=== PATIENT | female | born 1950 | race Caucasian/White ===

== ENCOUNTER 2018-04-04 16:49 | Inpatient (IN) | payer MEDICARE, OTHER ==
[2018-04-04 19:52] LABS: ADD MAN DIFF? NO
[2018-04-04 19:53] LABS: BASOPHIL # 0.1 10^3/ul (0.0-0.1); BASOPHILS % 0.3 % (0.0-2.0); EOSINOPHILS # 0.1 10^3/ul (0.0-0.5); EOSINOPHILS % 0.2 % (0.0-7.0); HEMATOCRIT 39.8 % (37.0-47.0); HEMOGLOBIN 13.2 g/dl (12.0-16.0); LYMPHOCYTES # 3.4 10^3/ul (0.8-2.9); LYMPHOCYTES % 16.5 % (15.0-51.0); MEAN CORPUSCULAR HGB CONC 33.2 g/dl (32.0-37.0); MEAN CORPUSCULAR VOLUME 84.5 fl (82.0-101.0); MEAN PLATELET VOLUME 11.3 fl (7.4-10.4); MONOCYTE # 1.2 10^3/ul (0.3-0.9); MONOCYTES % 5.8 % (0.0-11.0); NEUTROPHIL # 15.7 10^3/ul (1.6-7.5); NEUTROPHILS % 76.5 % (39.0-77.0); PLATELET COUNT 255 10^3/UL (140-415); RED BLOOD COUNT 4.71 10^6/ul (4.20-5.40); RED CELL DISTRIBUTION WIDTH 12.8 % (11.5-14.5)
[2018-04-04 19:53] LABS: WHITE BLOOD COUNT 20.5 10^3/ul (4.8-10.8)
[2018-04-04 20:13] LABS: INR 1.07; PT RATIO 1.1
[2018-04-04 20:14] LABS: PARTIAL THROMBOPLASTIN TIME 30.4 Sec (23.0-35.0)
[2018-04-04 20:15] LABS: ALANINE AMINOTRANSFERASE 24 IU/L (13-69); ALBUMIN 4.1 g/dl (3.3-4.9); ALBUMIN/GLOBULIN RATIO 1.36; ALKALINE PHOSPHATASE 120 IU/L (42-121); AMYLASE 42 U/L (11-123); ANION GAP 12 (5-13); ASPARTATE AMINO TRANSFERASE 23 IU/L (15-46); BILIRUBIN,INDIRECT 0.2 mg/dl (0-1.1); BILIRUBIN,TOTAL 0.2 mg/dl (0.2-1.3); BLOOD UREA NITROGEN 17 mg/dl (7-20); CALCIUM 9.1 mg/dl (8.4-10.2); CARBON DIOXIDE 25 mmol/L (21-31); CHLORIDE 98 mmol/L (97-110); CREATININE 0.62 mg/dl (0.44-1.00); Estimated GFR > 60 mL/min (>60); GLUCOSE 397 mg/dl (70-220); LIPASE 208 U/L (23-300); POTASSIUM 3.7 mmol/L (3.5-5.1); SODIUM 135 mmol/L (135-144); TOTAL PROTEIN 7.1 g/dl (6.1-8.1)
[2018-04-04] MEDS: morphine 4 MG/ML VIAL IV (20:16)
[2018-04-04] MEDS: ACETAMINOPHEN 325 MG TAB PO (20:16)
[2018-04-04] MEDS: ONDANSETRON 4 MG INJ IV (20:16)
[2018-04-04] MEDS: SODIUM CHLORIDE 0.9% 1L BAG IV* (20:17)
[2018-04-04] MEDS: CLINDAMYCIN 900 MG/D5W (PMX) 50 ML IVPB (20:23)
[2018-04-04 20:27] LABS: TROPONIN-I < 0.012 ng/ml (0.000-0.120)
[2018-04-04] MEDS ORDERED: BISACODYL (EC) 5 MG TAB PO (21:00)
[2018-04-04] MEDS ORDERED: NACL 0.9% 3 ML SYG IV (21:00)
[2018-04-04] MEDS ORDERED: DOCUSATE SODIUM 100 MG CAP PO (21:00)
[2018-04-04] MEDS ORDERED: morphine 2 MG INJ IV (21:00)
[2018-04-04] MEDS ORDERED: HYDROCODONE/APAP (5/325) TAB PO (21:00)
[2018-04-04] MEDS ORDERED: ONDANSETRON 4 MG TAB PO (21:00)
[2018-04-04] MEDS ORDERED: ACETAMINOPHEN 325 MG TAB PO (21:00)
[2018-04-04] MEDS ORDERED: ONDANSETRON 4 MG INJ IV (21:00)
[2018-04-04] MEDS: CIPROFLOXACIN 400MG/D5W 200 ML IVPB (21:24)
[2018-04-04 21:51] LABS: ADD UMIC YES; UR ASCORBIC ACID NEGATIVE (NEGATIVE); UR BACTERIA FEW /HPF (NONE SEEN); UR BILIRUBIN (Dip) NEGATIVE (NEGATIVE); UR BLOOD (Dip) NEGATIVE (NEGATIVE); UR CLARITY SLIGHTLY CLOUDY (CLEAR); UR COLOR YELLOW (YELLOW); UR GLUCOSE (Dip) 3+ mg/dL (NEGATIVE); UR KETONES (Dip) TRACE mg/dL (NEGATIVE); UR LEUKOCYTE ESTERASE (Dip) TRACE Leu/ul (NEGATIVE); UR MUCUS FEW /HPF (NONE SEEN); UR NITRITE (Dip) NEGATIVE (NEGATIVE); UR RBC 3 /HPF (0-5); UR SPECIFIC GRAVITY (Dip) 1.025 (1.003-1.030); UR SQUAMOUS EPITHELIAL CELL FEW /HPF (FEW); UR TOTAL PROTEIN (Dip) NEGATIVE (NEGATIVE); UR UROBILINOGEN (Dip) 1+ mg/dL (NEGATIVE); UR WBC 6 /HPF (0-5)
[2018-04-04] MEDS ORDERED: HEPARIN 5,000 UNIT/0.5 ML VIAL (23:47)
[2018-04-04] MEDS: VANCOMYCIN 1 GM (PMX) 250 ML IVPB (23:55)
[2018-04-05] MEDS: HEPARIN 5,000 UNIT/1 ML VIAL SC ×4 (00:22→21:25)
[2018-04-05 01:29] LABS: LACTIC ACID 1.5 mmol/L (0.5-2.0)
[2018-04-05] MEDS: ACCU-CHEK XX (02:55)
[2018-04-05 03:43] LABS: LACTIC ACID 1.3 mmol/L (0.5-2.0)
[2018-04-05] MEDS ORDERED: HEPARIN 5,000 UNIT/0.5 ML VIAL ×3 (05:39→21:12)
[2018-04-05 06:12] LABS: ADD MAN DIFF? NO
[2018-04-05 06:18] LABS: WHITE BLOOD COUNT 14.9 10^3/ul (4.8-10.8)
[2018-04-05 06:18] LABS: BASOPHILS % 0.3 % (0.0-2.0); EOSINOPHILS # 0.2 10^3/ul (0.0-0.5); EOSINOPHILS % 1.4 % (0.0-7.0); HEMATOCRIT 35.4 % (37.0-47.0); HEMOGLOBIN 11.6 g/dl (12.0-16.0); LYMPHOCYTES # 3.6 10^3/ul (0.8-2.9); MEAN CORPUSCULAR HEMOGLOBIN 28.3 pg (29.0-33.0); MEAN CORPUSCULAR HGB CONC 32.8 g/dl (32.0-37.0); MEAN CORPUSCULAR VOLUME 86.3 fl (82.0-101.0); MEAN PLATELET VOLUME 11.3 fl (7.4-10.4); MONOCYTE # 1.3 10^3/ul (0.3-0.9); MONOCYTES % 8.7 % (0.0-11.0); NEUTROPHIL # 9.6 10^3/ul (1.6-7.5); NEUTROPHILS % 64.8 % (39.0-77.0); PLATELET COUNT 210 10^3/UL (140-415); RED CELL DISTRIBUTION WIDTH 12.9 % (11.5-14.5)
[2018-04-05 06:35] LABS: HEMOGLOBIN A1C 10.1 % (0-5.9)
[2018-04-05 06:49] LABS: ALANINE AMINOTRANSFERASE 29 IU/L (13-69); ALBUMIN 2.8 g/dl (3.3-4.9); ALBUMIN/GLOBULIN RATIO 1.12; ALKALINE PHOSPHATASE 98 IU/L (42-121); ANION GAP 4 (5-13); ASPARTATE AMINO TRANSFERASE 17 IU/L (15-46); BILIRUBIN,INDIRECT 0.2 mg/dl (0-1.1); BILIRUBIN,TOTAL 0.2 mg/dl (0.2-1.3); BLOOD UREA NITROGEN 17 mg/dl (7-20); CALCIUM 8.3 mg/dl (8.4-10.2); CARBON DIOXIDE 27 mmol/L (21-31); CHLORIDE 107 mmol/L (97-110); CHOL/HDL RATIO 4.5 RATIO; CHOLESTEROL 155 mg/dl (100-200); CREATININE 0.62 mg/dl (0.44-1.00); Estimated GFR > 60 mL/min (>60); GLUCOSE 313 mg/dl (70-220); HDL CHOLESTEROL 34 mg/dl (35-98); LDL CHOLESTEROL,CALCULATED 81 mg/dl; MAGNESIUM 2.2 mg/dl (1.7-2.5); SODIUM 138 mmol/L (135-144); TOTAL PROTEIN 5.3 g/dl (6.1-8.1); TRIGLYCERIDES 200 mg/dl (0-149)
[2018-04-05 06:53] LABS: LACTIC ACID 1.4 mmol/L (0.5-2.0)
[2018-04-05] MEDS: FUROSEMIDE 20 MG TAB PO (07:03)
[2018-04-05 07:54] LABS: THYROID STIMULATING HORMONE 0.797 MIU/L (0.465-4.680)
[2018-04-05] MEDS: INSULIN ASPART [NOVOLOG] 3 ML PEN SC ×4 (08:34→21:23)
[2018-04-05] MEDS ORDERED: NON-FORMULARY/PATIENT OWN MED (Omega-3 Acid Ethyl Esters (Lovaza) 1 GM) PO (09:00)
[2018-04-05] MEDS: ASPIRIN 81 MG TAB PO (09:23)
[2018-04-05] MEDS: traMADol 50 MG TAB PO ×2 (09:23→21:15)
[2018-04-05] MEDS: FISH OIL 1,000 MG CAP PO ×3 (09:23→21:16)
[2018-04-05] MEDS: HYDROCHLOROTHIAZIDE 25 MG TAB PO (09:25)
[2018-04-05] MEDS: BISACODYL (EC) 5 MG TAB PO ×2 (09:26→21:15)
[2018-04-05] MEDS ORDERED: VANCOMYCIN IV PER PHARMACY XX (09:30)
[2018-04-05] MEDS: PIPER-TAZO 3.375 GM IV (PMX) 100 ML IVPB ×2 (11:03→17:41)
[2018-04-05] MEDS: VANCOMYCIN 2 GM in SOD CHLORIDE 0.9% 500 ML IVPB (13:27)
[2018-04-05] MEDS: ACETAMINOPHEN 325 MG TAB PO (15:25)
[2018-04-05 16:54] LABS: C-REACTIVE PROTEIN 18.8 mg/dl (0.0-0.9)
[2018-04-05 17:27] LABS: ERYTHROCYTE SEDIMENTATION RATE 80 mm/Hr (0-30)
[2018-04-05] MEDS: INSULIN GLARGINE [LANTus] (100 UNITS/ML) SYG SC (21:24)
[2018-04-06] MEDS: ACCU-CHEK XX (02:00)
[2018-04-06] MEDS: VANCOMYCIN 1.25 GM in SOD CHLORIDE 0.9% 250 ML IVPB ×2 (03:19→14:26)
[2018-04-06] MEDS: FUROSEMIDE 20 MG TAB PO (05:44)
[2018-04-06] MEDS: PIPER-TAZO 3.375 GM IV (PMX) 100 ML IVPB ×4 (05:44→17:12)
[2018-04-06] MEDS: INSULIN ASPART [NOVOLOG] 3 ML PEN SC ×7 (08:02→21:30)
[2018-04-06] MEDS: FISH OIL 1,000 MG CAP PO ×3 (08:34→21:02)
[2018-04-06] MEDS: BISACODYL (EC) 5 MG TAB PO ×2 (08:34→21:02)
[2018-04-06] MEDS: ASPIRIN 81 MG TAB PO (08:34)
[2018-04-06] MEDS: traMADol 50 MG TAB PO ×2 (08:35→21:02)
[2018-04-06] MEDS: HYDROCHLOROTHIAZIDE 25 MG TAB PO (08:36)
[2018-04-06 15:50] LABS: C-REACTIVE PROTEIN 13.9 mg/dl (0.0-0.9)
[2018-04-06 16:22] LABS: ERYTHROCYTE SEDIMENTATION RATE 110 mm/Hr (0-30)
[2018-04-06] MEDS: INSULIN GLARGINE [LANTus] (100 UNITS/ML) SYG SC (21:10)
[2018-04-07] MEDS: PIPER-TAZO 3.375 GM IV (PMX) 100 ML IVPB ×4 (00:10→17:46)
[2018-04-07 01:46] LABS: BLOOD UREA NITROGEN 15 mg/dl (7-20)
[2018-04-07 01:46] LABS: CREATININE 0.64 mg/dl (0.44-1.00)
[2018-04-07 01:53] LABS: VANCOMYCIN,TROUGH 6.4 ug/ml (10.0-20.0)
[2018-04-07] MEDS: ACCU-CHEK XX (02:00)
[2018-04-07] MEDS: VANCOMYCIN 1.25 GM in SOD CHLORIDE 0.9% 250 ML IVPB (03:07)
[2018-04-07] MEDS: FUROSEMIDE 20 MG TAB PO (05:45)
[2018-04-07] MEDS: INSULIN ASPART [NOVOLOG] 3 ML PEN SC ×7 (08:00→22:08)
[2018-04-07] MEDS: traMADol 50 MG TAB PO ×2 (09:12→21:53)
[2018-04-07] MEDS: FISH OIL 1,000 MG CAP PO ×3 (09:13→21:52)
[2018-04-07] MEDS: HYDROCHLOROTHIAZIDE 25 MG TAB PO (09:13)
[2018-04-07] MEDS: BISACODYL (EC) 5 MG TAB PO ×2 (09:13→21:52)
[2018-04-07] MEDS: ASPIRIN 81 MG TAB PO (09:13)
[2018-04-07] MEDS ORDERED: ONDANSETRON 4 MG INJ IV (09:30)
[2018-04-07] MEDS ORDERED: LABETALOL HCL 20MG INJ IV (09:30)
[2018-04-07] MEDS ORDERED: HYDROmorphONE 1 MG/5 ML IV SYRINGE IV ×3 (09:30)
[2018-04-07] MEDS ORDERED: DIPHENHYDRAMINE 50 MG INJ IV (09:30)
[2018-04-07] MEDS ORDERED: hydrALAzine 20 MG INJ IV (09:30)
[2018-04-07] MEDS ORDERED: MEPERIDINE 25 MG INJ IV (09:30)
[2018-04-07] MEDS ORDERED: FENTAnyl 50 MCG/ML VIAL (09:39)
[2018-04-07] MEDS ORDERED: PROPOFOL 20 ML (09:39)
[2018-04-07] MEDS ORDERED: MIDAZOLAM 1 MG/ML 2 ML INJ (09:39)
[2018-04-07] MEDS: LIDOCAINE 1% (STERILE-PAK) 30 ML INJ (10:07)
[2018-04-07] MEDS: POLYMYXIN/BACITRACIN 1L IRRIG (10:07)
[2018-04-07] MEDS: POLYMYXIN B 500000 UNIT INJ (10:08)
[2018-04-07] MEDS: BACITRACIN 50000 UNITS INJ IRR (10:08)
[2018-04-07] MEDS: VANCOMYCIN 1 GM 250 ML IVPB ×2 (14:11→21:53)
[2018-04-07] MEDS: DIAZEPAM 5 MG/ML SYG IV (21:54)
[2018-04-07] MEDS: INSULIN GLARGINE [LANTus] (100 UNITS/ML) SYG SC (22:08)
[2018-04-08] MEDS: PIPER-TAZO 3.375 GM IV (PMX) 100 ML IVPB ×4 (00:15→18:29)
[2018-04-08] MEDS: ACCU-CHEK XX (02:04)
[2018-04-08 05:41] LABS: HEMATOCRIT 36.1 % (37.0-47.0); HEMOGLOBIN 11.9 g/dl (12.0-16.0); MEAN CORPUSCULAR HEMOGLOBIN 27.7 pg (29.0-33.0); MEAN CORPUSCULAR VOLUME 84.1 fl (82.0-101.0); MEAN PLATELET VOLUME 10.4 fl (7.4-10.4); PLATELET COUNT 308 10^3/UL (140-415); RED BLOOD COUNT 4.29 10^6/ul (4.20-5.40)
[2018-04-08 05:41] LABS: WHITE BLOOD COUNT 12.6 10^3/ul (4.8-10.8)
[2018-04-08 05:43] LABS: POSITIVE DIFF @See below
[2018-04-08 05:44] LABS: ADD MAN DIFF? YES
[2018-04-08] MEDS: FUROSEMIDE 20 MG TAB PO (05:44)
[2018-04-08] MEDS: VANCOMYCIN 1 GM 250 ML IVPB ×2 (05:45→15:11)
[2018-04-08 06:12] LABS: ANION GAP 8 (5-13); BLOOD UREA NITROGEN 12 mg/dl (7-20); CALCIUM 8.8 mg/dl (8.4-10.2); CARBON DIOXIDE 28 mmol/L (21-31); CHLORIDE 104 mmol/L (97-110); CREATININE 0.64 mg/dl (0.44-1.00); Estimated GFR > 60 mL/min (>60); GLUCOSE 127 mg/dl (70-220); MAGNESIUM 2.2 mg/dl (1.7-2.5); PHOSPHORUS 4.2 mg/dl (2.5-4.9); POTASSIUM 3.7 mmol/L (3.5-5.1); SODIUM 140 mmol/L (135-144)
[2018-04-08] MEDS: morphine 4 MG/ML VIAL IV (07:40)
[2018-04-08] MEDS: ONDANSETRON 4 MG INJ IV (07:41)
[2018-04-08] MEDS: IBUPROFEN 800 MG TAB PO (07:42)
[2018-04-08] MEDS: INSULIN ASPART [NOVOLOG] 3 ML PEN SC ×7 (07:42→22:08)
[2018-04-08 07:54] LABS: ANISOCYTOSIS 1+ (0-0); BASOPHIL #M 0.1 10^3/ul (0.0-0.0); BASOPHILS % (M) 1 % (0-2); EOSINOPHILS % (M) 2 % (0-7); LYMPHOCYTES #M 4.6 10^3/ul (0.8-2.9); LYMPHOCYTES % (M) 37 % (15-51); MONOCYTE #M 0.6 10^3/ul (0.3-0.9); MONOCYTES % (M) 5 % (0-11); PLATELET ESTIMATE NORMAL; PLATELET MORPHOLOGY COMMENT @See below; POLYCHROMASIA 1+ (0-0); REACTIVE LYMPHOCYTES #M 0.1 10^3/ul (0.0-0.0); REACTIVE LYMPHOCYTES% (M) 1 % (0-0); SEGMENTED NEUTROPHILS (M) % 54 % (39-77); SMUDGE%M 11 % (0-0)
[2018-04-08] MEDS: BISACODYL (EC) 5 MG TAB PO ×2 (08:48→21:47)
[2018-04-08] MEDS: FISH OIL 1,000 MG CAP PO ×3 (08:48→21:47)
[2018-04-08] MEDS: traMADol 50 MG TAB PO ×2 (08:49→21:48)
[2018-04-08] MEDS: ASPIRIN 81 MG TAB PO (08:49)
[2018-04-08] MEDS: HYDROCHLOROTHIAZIDE 25 MG TAB PO (08:49)
[2018-04-08] MEDS ORDERED: morphine LIQ (10 MG/5 ML) CUP PO (12:40)
[2018-04-08 13:12] LABS: PROCALCITONIN 0.11 ng/mL (<0.10)
[2018-04-08] MEDS: INSULIN GLARGINE [LANTus] (100 UNITS/ML) SYG SC (21:00)
[2018-04-08] MEDS: VANCOMYCIN 750 MG in SOD CHLORIDE 0.9% 150 ML IVPB (23:00)
[2018-04-09] MEDS: PIPER-TAZO 3.375 GM IV (PMX) 100 ML IVPB ×4 (00:32→17:41)
[2018-04-09] MEDS: ACCU-CHEK XX (02:00)
[2018-04-09] MEDS: FUROSEMIDE 20 MG TAB PO (05:30)
[2018-04-09 05:36] LABS: ADD MAN DIFF? NO
[2018-04-09 05:47] LABS: BASOPHIL # 0.1 10^3/ul (0.0-0.1); BASOPHILS % 0.5 % (0.0-2.0); EOSINOPHILS # 0.4 10^3/ul (0.0-0.5); HEMATOCRIT 35.9 % (37.0-47.0); HEMOGLOBIN 11.9 g/dl (12.0-16.0); LYMPHOCYTES # 3.7 10^3/ul (0.8-2.9); LYMPHOCYTES % 30.7 % (15.0-51.0); MEAN CORPUSCULAR HEMOGLOBIN 28.4 pg (29.0-33.0); MEAN CORPUSCULAR HGB CONC 33.1 g/dl (32.0-37.0); MEAN CORPUSCULAR VOLUME 85.7 fl (82.0-101.0); MEAN PLATELET VOLUME 10.4 fl (7.4-10.4); MONOCYTES % 8.2 % (0.0-11.0); NEUTROPHIL # 6.8 10^3/ul (1.6-7.5); NEUTROPHILS % 55.9 % (39.0-77.0); PLATELET COUNT 312 10^3/UL (140-415); RED BLOOD COUNT 4.19 10^6/ul (4.20-5.40)
[2018-04-09 05:47] LABS: WHITE BLOOD COUNT 12.1 10^3/ul (4.8-10.8)
[2018-04-09] MEDS: VANCOMYCIN 750 MG in SOD CHLORIDE 0.9% 150 ML IVPB ×2 (06:01→15:26)
[2018-04-09 06:47] LABS: ANION GAP 9 (5-13); BLOOD UREA NITROGEN 13 mg/dl (7-20); CALCIUM 8.8 mg/dl (8.4-10.2); CARBON DIOXIDE 28 mmol/L (21-31); CHLORIDE 105 mmol/L (97-110); CREATININE 0.71 mg/dl (0.44-1.00); Estimated GFR > 60 mL/min (>60); GLUCOSE 132 mg/dl (70-220); MAGNESIUM 2.4 mg/dl (1.7-2.5); PHOSPHORUS 4.7 mg/dl (2.5-4.9); POTASSIUM 3.4 mmol/L (3.5-5.1); SODIUM 142 mmol/L (135-144)
[2018-04-09] MEDS: INSULIN ASPART [NOVOLOG] 3 ML PEN SC ×7 (08:00→21:13)
[2018-04-09] MEDS ORDERED: GLUCOSE GEL 15 GRAM TUBE BUCCAL (08:30)
[2018-04-09] MEDS ORDERED: DEXTROSE 50% 50 ML SYRINGE IV ×2 (08:30)
[2018-04-09] MEDS ORDERED: GLUCAGON 1 MG INJ IM (08:30)
[2018-04-09] MEDS ORDERED: GLUCOSE GEL 15 GRAM TUBE PO ×2 (08:30)
[2018-04-09] MEDS: traMADol 50 MG TAB PO ×2 (09:00→21:14)
[2018-04-09] MEDS: ASPIRIN 81 MG TAB PO (09:03)
[2018-04-09] MEDS: HYDROCHLOROTHIAZIDE 25 MG TAB PO (09:03)
[2018-04-09] MEDS: FISH OIL 1,000 MG CAP PO ×3 (09:03→21:13)
[2018-04-09] MEDS: BISACODYL (EC) 5 MG TAB PO ×2 (09:03→21:15)
[2018-04-09 12:12] LABS: C-REACTIVE PROTEIN 3.7 mg/dl (0.0-0.9)
[2018-04-09] MEDS: POTASSIUM CHLORIDE (SR) 20 MEQ TAB PO (16:09)
[2018-04-09] MEDS: INSULIN GLARGINE [LANTus] (100 UNITS/ML) SYG SC (21:12)
[2018-04-09] MEDS: DIPHENHYDRAMINE 25 MG CAP PO (23:00)
[2018-04-10] MEDS: VANCOMYCIN 750 MG in SOD CHLORIDE 0.9% 150 ML IVPB ×2 (00:15→08:26)
[2018-04-10] MEDS: ACCU-CHEK XX (02:00)
[2018-04-10] MEDS: PIPER-TAZO 3.375 GM IV (PMX) 100 ML IVPB ×3 (02:26→12:30)
[2018-04-10 05:59] LABS: ADD MAN DIFF? NO
[2018-04-10 06:16] LABS: WHITE BLOOD COUNT 12.6 10^3/ul (4.8-10.8)
[2018-04-10 06:16] LABS: BASOPHIL # 0.1 10^3/ul (0.0-0.1); BASOPHILS % 0.6 % (0.0-2.0); EOSINOPHILS # 0.4 10^3/ul (0.0-0.5); EOSINOPHILS % 2.9 % (0.0-7.0); HEMATOCRIT 36.6 % (37.0-47.0); HEMOGLOBIN 11.9 g/dl (12.0-16.0); LYMPHOCYTES # 4.1 10^3/ul (0.8-2.9); LYMPHOCYTES % 32.2 % (15.0-51.0); MEAN CORPUSCULAR HEMOGLOBIN 27.7 pg (29.0-33.0); MEAN CORPUSCULAR HGB CONC 32.5 g/dl (32.0-37.0); MEAN CORPUSCULAR VOLUME 85.1 fl (82.0-101.0); MEAN PLATELET VOLUME 10.3 fl (7.4-10.4); MONOCYTE # 0.9 10^3/ul (0.3-0.9); MONOCYTES % 7.4 % (0.0-11.0); NEUTROPHILS % 55.6 % (39.0-77.0); PLATELET COUNT 327 10^3/UL (140-415)
[2018-04-10] MEDS: FUROSEMIDE 20 MG TAB PO (06:34)
[2018-04-10 07:16] LABS: VANCOMYCIN,TROUGH 17.6 ug/ml (10.0-20.0)
[2018-04-10 07:21] LABS: ANION GAP 7 (5-13); BLOOD UREA NITROGEN 14 mg/dl (7-20); CARBON DIOXIDE 26 mmol/L (21-31); CHLORIDE 106 mmol/L (97-110); CREATININE 0.74 mg/dl (0.44-1.00); Estimated GFR > 60 mL/min (>60); GLUCOSE 183 mg/dl (70-220); MAGNESIUM 2.3 mg/dl (1.7-2.5); PHOSPHORUS 4.7 mg/dl (2.5-4.9); POTASSIUM 3.9 mmol/L (3.5-5.1); SODIUM 139 mmol/L (135-144)
[2018-04-10] MEDS: ASPIRIN 81 MG TAB PO (08:20)
[2018-04-10] MEDS: FISH OIL 1,000 MG CAP PO ×3 (08:20→21:16)
[2018-04-10] MEDS: BISACODYL (EC) 5 MG TAB PO ×2 (08:21→21:16)
[2018-04-10] MEDS: traMADol 50 MG TAB PO ×2 (08:21→21:17)
[2018-04-10] MEDS: HYDROCHLOROTHIAZIDE 25 MG TAB PO (08:22)
[2018-04-10] MEDS: INSULIN ASPART [NOVOLOG] 3 ML PEN SC ×7 (08:24→21:15)
[2018-04-10] MEDS: DIPHENHYDRAMINE 25 MG CAP PO ×2 (10:26→17:14)
[2018-04-10] MEDS: SODIUM HYPOCHLORITE (1/40) 1 APPLIC BTL IRR (14:56)
[2018-04-10] MEDS ORDERED: VANCOMYCIN 500MG/NS (PMX) 100 ML IVPB (16:00)
[2018-04-10 16:09] LABS: C-REACTIVE PROTEIN 2.5 mg/dl (0.0-0.9)
[2018-04-10] MEDS: CEFTRIAXONE 2 GM/50 ML (PMX) 50 ML IVPB (18:55)
[2018-04-10] MEDS: LIDOCAINE 1% (MPF) 5 ML VIAL SC (20:25)
[2018-04-10] MEDS: SOD CHLORIDE 0.9% 100 ML (20:35)
[2018-04-10] MEDS: INSULIN GLARGINE [LANTus] (100 UNITS/ML) SYG SC (21:14)
[2018-04-11] MEDS: ACCU-CHEK XX (02:17)
[2018-04-11] MEDS: FUROSEMIDE 20 MG TAB PO (06:02)
[2018-04-11 06:59] LABS: ADD MAN DIFF? NO
[2018-04-11 07:08] LABS: BASOPHILS % 0.2 % (0.0-2.0); EOSINOPHILS # 0.4 10^3/ul (0.0-0.5); EOSINOPHILS % 3.1 % (0.0-7.0); HEMATOCRIT 37.8 % (37.0-47.0); HEMOGLOBIN 12.2 g/dl (12.0-16.0); LYMPHOCYTES # 3.2 10^3/ul (0.8-2.9); LYMPHOCYTES % 24.4 % (15.0-51.0); MEAN CORPUSCULAR HEMOGLOBIN 27.7 pg (29.0-33.0); MEAN CORPUSCULAR HGB CONC 32.3 g/dl (32.0-37.0); MEAN CORPUSCULAR VOLUME 85.9 fl (82.0-101.0); MEAN PLATELET VOLUME 10.2 fl (7.4-10.4); MONOCYTES % 7.6 % (0.0-11.0); NEUTROPHIL # 8.3 10^3/ul (1.6-7.5); NEUTROPHILS % 63.6 % (39.0-77.0); PLATELET COUNT 344 10^3/UL (140-415); RED CELL DISTRIBUTION WIDTH 13.2 % (11.5-14.5)
[2018-04-11 07:42] LABS: ANION GAP 7 (5-13); BLOOD UREA NITROGEN 17 mg/dl (7-20); CALCIUM 8.8 mg/dl (8.4-10.2); CARBON DIOXIDE 29 mmol/L (21-31); CHLORIDE 106 mmol/L (97-110); CREATININE 0.96 mg/dl (0.44-1.00); Estimated GFR 58 mL/min (>60); GLUCOSE 139 mg/dl (70-220); MAGNESIUM 2.4 mg/dl (1.7-2.5); PHOSPHORUS 5.6 mg/dl (2.5-4.9); POTASSIUM 3.5 mmol/L (3.5-5.1); SODIUM 142 mmol/L (135-144)
[2018-04-11] MEDS: FISH OIL 1,000 MG CAP PO ×2 (08:13→12:43)
[2018-04-11] MEDS: BISACODYL (EC) 5 MG TAB PO (08:14)
[2018-04-11] MEDS: ASPIRIN 81 MG TAB PO (08:14)
[2018-04-11] MEDS: traMADol 50 MG TAB PO (08:14)
[2018-04-11] MEDS: HYDROCHLOROTHIAZIDE 25 MG TAB PO (08:16)
[2018-04-11] MEDS: INSULIN ASPART [NOVOLOG] 3 ML PEN SC ×6 (08:17→17:42)
[2018-04-11] MEDS: SODIUM HYPOCHLORITE (1/40) 1 APPLIC BTL IRR (08:19)
[2018-04-11] MEDS: DIPHENHYDRAMINE 50 MG INJ IV (11:49)
[2018-04-11] MEDS: CEFTRIAXONE 2 GM/50 ML (PMX) 50 ML IVPB (15:16)
== END 2018-04-11 18:40 | disposition home health service (06) | DRG 854 ==
LOC: PP2 04-09 08:21 → E/R 16:49 → 6WM 20:53
PROC: 0JBR0ZZ Excision of Left Foot Subcutaneous Tissue and Fascia, Open Approach (ICD-10-PCS; principal; 2018-04-07 09:00)
PROC: 02HV33Z Insertion of Infusion Device into Superior Vena Cava, Percutaneous Approach (ICD-10-PCS; 2018-04-07 09:43)
PROC: B548ZZA Ultrasonography of Superior Vena Cava, Guidance (ICD-10-PCS; 2018-04-07 09:43)
DX: A41.9 Sepsis, unspecified organism (principal); L02.612 Cutaneous abscess of left foot; M00.9 Pyogenic arthritis, unspecified; M86.8X7 Other osteomyelitis, ankle and foot; N39.0 Urinary tract infection, site not specified; L97.821 Non-pressure chronic ulcer of other part of left lower leg limited to breakdown of skin; L03.116 Cellulitis of left lower limb; E11.621 Type 2 diabetes mellitus with foot ulcer; E11.65 Type 2 diabetes mellitus with hyperglycemia; I10 Essential (primary) hypertension; F17.200 Nicotine dependence, unspecified, uncomplicated; E66.9 Obesity, unspecified; Z68.37 Body mass index [BMI] 37.0-37.9, adult; R65.20 Severe sepsis without septic shock; Z79.4 Long term (current) use of insulin; E11.42 Type 2 diabetes mellitus with diabetic polyneuropathy
CPT/HCPCS: 36415; 36569; 71045; 73630-LT; 73718; 76937; 80048; 80053; 80061; 80202; 81001; 82150; 82565; 82962; 83036; 83605; 83690; 83735; 84100; 84145; 84443; 84484; 84520; 85025; 85610; 85651; 85730; 86140; 87040; 87070; 87075; 87086; 87102; 93005; 93922; 93971; 96365; 96375; 97161; 99291-25